=== PATIENT | male | born 1980 | race Caucasian/White ===

== ENCOUNTER 2018-08-20 01:58 | Observation (INO) | payer SELFPAY ==
[2018-08-20] VITALS (7 sets, daily range): BP systolic 131–159; BP diastolic 72–88; PULSE 78–97; TEMP 97.9–98.3
[~2018-08-20 01:58] MED LIST: ATARAX 25MG25 MG/TAB PO; ATIVAN 1MG T1 MG/TAB PO; BUSPAR5 MG PO; CELEXA 20MG20 MG/TAB PO; CEPHALEXIN500 M1 PO; DESYREL 100MG100 MG PO; FOLIC ACID 11 MG/TA1 PO; HCTZ 25MG TAB25 MG PO; INDERAL 10MG10 MG; KLONOPIN 1MG1 MG PO; LOPID 600M600 MG/TAB PO; LOPRESSOR 225 MG/TAB PO; PERCOCET 325 MG1 TA2 PO; THERAGRAN TAB1 UDTAB PO; ULTRAM50 MG PO; VALIUM 2MG T2 MG/TAB PO; VALIUM 5MG T5 MG/TAB PO
--- NOTE | 2018-08-20 09:48 | NUR ---
Rerport from [facility] in [place], Patient to room 323. He is alert, complaints of pain 10/10 to ankle, report he is unable to get any rest because the pain is so severe. Dilaudid prn per orders given. He denies nausea & aware of Npo status. Lr to gravity started, he reports dry mouth. Swabs provided. Patient med rec & inital assessment completed. Will try to let him get some rest until surgery this afternoon.
[2018-08-20] MEDS ORDERED: COLACE 100100 MG/CAP PO (14:43)
[2018-08-20] MEDS ORDERED: ROXICODONE 55 MG/TAB PO (14:43)
[2018-08-20] MEDS ORDERED: ASPI325T6 PO (14:43)
--- NOTE | 2018-08-20 14:57 | NUR ---
Patient to OR, with Joana. His family at bedside. Ortho rounded. Lr to gravity. Patient prep to Or assisted with hygeine.
--- NOTE | 2018-08-20 16:21 | NUR ---
SCRIPTS GIVEN TO SIGNIFICANT OTHER TO GET FILLED BEFORE PHARMACY CLOSES
--- NOTE | 2018-08-20 16:25 | NUR ---
Plan is to return home but is not sure what will be needed after surgery. Patient reports that he resides in [facility] with his Idalmis and child. Patient reports that he obtians short-term scripts from [facility] in [place] and [facility] mail for the rest. Patient denies having a PCP only [facility] at [place] that helps with his medications Sabree. is bringing in crutches. Surgery scheduled for 2 pm. Patient reports that he is not opposed to additonal services. Continues to follow for alternative neesd.
--- NOTE | 2018-08-20 16:35 | NUR ---
Patient has returned post op. Vss. RLe iced & elevated. Cms intact. Reema Lambert to resume care
--- NOTE | 2018-08-20 19:24 | NUR ---
Discharge instructions reviewed with patient and spouse, verbalized understanding. Discharged via wheelchair to auto/home with spouse at 1920.
== END 2018-08-20 19:20 | disposition home or self-care (01) ==
LOC: COL.ER 01:58 → SURG 07:40
PROVIDERS: ADMIT Orthopaedic Surgery Sports Medicine
DX: S82.851A Displaced trimalleolar fracture of right lower leg, initial encounter for closed fracture (principal); F32.9 Major depressive disorder, single episode, unspecified; F41.9 Anxiety disorder, unspecified; F17.210 Nicotine dependence, cigarettes, uncomplicated; I10 Essential (primary) hypertension
CPT/HCPCS: C1713; G0378; J0690; J1100; J1170; J1885; J2250; J2405; J2704; J2795; J3010; J7120; Q4045